=== PATIENT | female | born 1995 | race African-American/Black ===

== ENCOUNTER 2017-06-30 03:42 | Emergency (ER) | payer SELFPAY ==
[~2017-06-30] VITALS: Ht 167.6 cm; Wt 85.0 kg
[~2017-06-30 03:42] MED LIST: BENT20TA PO; CHLO.12%30 SSP; CIPR-9 PO; DICL75TA PO; LOMO2.5T PO; PENI500T PO; ZANTTAB9 PO; ZOFR4TAB3 SL
[2017-06-30 03:45] VITALS: BP 133/73; PULSE 98; RESP 16; TEMP 98.4; O2SAT 99
[2017-06-30] MEDS ORDERED: KETOROLAC TROMETHAMINE 60 MG/2 ML (IM) VIAL IM ONE (04:00)
--- NOTE | 2017-06-30 04:02 | PD ---
HPI Chief Complaint: Injury Time Seen by Provider: 03:50 Travel History International Travel<30 days: No Contact w/Intl Traveler<30days: No Traveled to known affect area: No History of Present Illness HPI 21-year-old female presents for evaluation of left knee pain. At 5 PM yesterday the patient tripped and fell, hitting her left knee against the ground. She now has left knee pain which is aching, constant, worse with movement. Denies any other injuries and she has no other complaints at this time. PFSH Past Medical History Autoimmune Disease: No Cardiovascular Problems: No Diminished Hearing: No Gastrointestinal Disorders: No Genitourinary: No Musculoskeletal: No Neurologic: No Psychiatric: No Reproductive: No Respiratory: No Immunizations Current: Yes : 1 Para: 1 Miscarriage: 0 : 0 Past Surgical History Section: Yes Oral Surgery: Yes (TOOTH PULLED ON 02/16) Other Surgery: No Social History Alcohol Use: No Tobacco Use: No Substance Use: No Allergies-Medications (Allergen,Severity, Reaction): Coded Allergies: No Known Allergies (Verified , 06/30/17) Reported Meds & Prescriptions Reported Meds & Active Scripts Active Lomotil (Diphenoxylate-Atropine) 2.5-0.025 Mg Tab 1 Tab PO Q6H PRN Bentyl (Dicyclomine HCl) 20 Mg Tab 20 Mg PO TID Zofran Odt (Ondansetron Odt) 4 Mg Tab 4 Mg SL Q6HR PRN Zantac 75 (Ranitidine HCl) 75 Mg Tab 75 Mg PO BID Take 30 to 60 minutes before eating food or drinking beverages that cause heartburn. Cipro (Ciprofloxacin HCl) 500 Mg Tab 500 Mg PO BID [address] (Diclofenac Sodium) 75 Mg Tabdr 75 Mg PO Q8HR PRN Peridex Oral R0.12 % 0.12 % Debbi 15 Ml SSP BID 7 Days Pen Vk (Penicillin V Potassium) 500 Mg Tab 500 Mg PO Q6 10 Days Review of Systems Except as stated in HPI: all other systems reviewed are Neg Physical Exam Narrative GENERAL: Well-developed well-nourished female in no acute distress SKIN: Warm and dry. No Bruising or soft tissue swelling HEAD: Atraumatic. Normocephalic. EYES: Pupils equal and round. No scleral icterus. No injection or drainage. ENT: No nasal bleeding or discharge. Mucous membranes pink and moist. NECK: Trachea midline. No JVD. CARDIOVASCULAR: Regular rate and rhythm. No murmur appreciated. RESPIRATORY: No accessory muscle use. Clear to auscultation. Breath sounds equal bilaterally. MUSCULOSKELETAL: Tender to palpation anterior left knee with no obvious deformity. No joint effusion. Pain with flexion and extension. No laxity on stress examination. NEUROLOGICAL: Awake and alert. No obvious cranial nerve deficits. Motor grossly within normal limits. Normal speech. Data Data Last Documented VS Vital Signs Date Time Temp Pulse Resp B/P Pulse Ox O2 Delivery O2 Flow Rate FiO2 06/30/17 03:45 98.4 98 16 133/73 99 Room Air Orders Ketorolac Inj (Toradol Inj) (06/30/17 04:00) Knee, Complete (4vws) (06/30/17 ) Crutches (06/30/17 05:52) [facility] Medical Decision Making Medical Screen Exam Complete: Yes Emergency Medical Condition: Yes Medical Record Reviewed: Yes Differential Diagnosis Confusion, patellar fracture, tibial plateau fracture, ligamentous disruption, meniscal disruption Narrative Course X-ray imaging reveals no acute abnormalities. Toradol injection was administered. The patient is stable for discharge, outpatient follow-up. Diagnosis Primary Impression: Strain of left knee Qualified Code: S86.912A - Strain of left knee, initial encounter Additional Instructions: Crutches as needed. Tylenol or Motrin for discomfort. Follow up next week with primary care physician for recheck. Med/Other Pt SpecificInfo: Orthopedic Instructions Disposition: DISCHARGE HOME Condition: Stable Ketan Hickman Jun 30, 2017 04:02
--- NOTE | 2017-06-30 05:51 | RADRPT ---
EXAM DATE/TIME: 06/30/2017 04:34 [place] COMPARISON: No previous studies available for comparison. INDICATIONS : Left patella pain post fall. MEDICAL HISTORY : None. SURGICAL HISTORY : None. ENCOUNTER: Initial ACUITY: 1 day PAIN SCORE: 8/10 LOCATION: Left knee FINDINGS: Four view examination of the left knee demonstrates no evidence of fracture or dislocation. Bony min eralization is normal. The articular surfaces are intact. The suprapatellar soft tissues have a nor mal configuration. CONCLUSION: Negative exam. No fracture or effusion. Omkar Cleveland MD on June 30, 2017 at 5:49 Board Certified Radiologist. This report was verified electronically.
== END 2017-06-30 06:09 | disposition home or self-care (01) ==
LOC: NEPD 03:42
DX: S86.912A Strain of unspecified muscle(s) and tendon(s) at lower leg level, left leg, initial encounter (principal); W01.0XXA Fall on same level from slipping, tripping and stumbling without subsequent striking against object, initial encounter
CPT/HCPCS: 73564; 96372; 99284; E0113; J1885

== ENCOUNTER 2018-04-05 18:24 | Inpatient (IN) | payer MEDICAID ==
[~2018-04-05] VITALS: Ht 162.6 cm; Wt 116.1 kg
[2018-04-05 18:37] VITALS: BP 161/66; PULSE 135; RESP 18; TEMP 100.3; O2SAT 98
[2018-04-05] MEDS ORDERED: IBUPROFEN 800 MG TAB PO ONE (20:00)
[2018-04-05] MEDS ORDERED: SODIUM CHLORIDE 0.9% FLUSH 10 ML FLUSH IVF PRN (20:00)
[2018-04-05] MEDS ORDERED: SODIUM CHLOR 0.9% 1000 ML INJ 1,000 ML IV ONE ×2 (20:15→21:00)
[2018-04-05] MEDS ORDERED: DEXAMETHASONE SOD PHOS 4 MG/ML VIAL IV PUSH ONE (20:15)
--- NOTE | 2018-04-05 20:21 | PD ---
HPI Chief Complaint: Fever Time Seen by Provider: 19:59 Travel History International Travel<30 days: No Contact w/Intl Traveler<30days: No Traveled to known affect area: No History of Present Illness HPI Patient is a 22-year-old female presenting to the emergency department for evaluation of a sore throat, headache, pleuritic pain. Patient states her symptoms started yesterday. She reports subjective fevers and chills. She reports that it hurts to swallow. She denies any dysphasia, nausea, vomiting, abdominal pain. She states it hurts to take a deep breath. Symptom onset was gradual, symptoms are moderate in nature. She reports the pain in her throat is a 7 out of 10. She last took Tylenol last night. She reports the pain is sore. She states she feels dizzy at times. PFSH Past Medical History Medical History: Denies Significant Hx Immunizations Current: Yes ?: Not LMP: 03/14/18 : 1 Para: 1 Miscarriage: 0 : 0 Past Surgical History Section: Yes Oral Surgery: Yes (TOOTH PULLED ON 02/16) Other Surgery: No Social History Alcohol Use: No Tobacco Use: No Substance Use: No Allergies-Medications (Allergen,Severity, Reaction): Coded Allergies: No Known Allergies (Verified , 06/30/17) Reported Meds & Prescriptions Reported Meds & Active Scripts Active Lomotil (Diphenoxylate-Atropine) 2.5-0.025 Mg Tab 1 Tab PO Q6H PRN Bentyl (Dicyclomine HCl) 20 Mg Tab 20 Mg PO TID Zofran Odt (Ondansetron Odt) 4 Mg Tab 4 Mg SL Q6HR PRN Zantac 75 (Ranitidine HCl) 75 Mg Tab 75 Mg PO BID Take 30 to 60 minutes before eating food or drinking beverages that cause heartburn. Cipro (Ciprofloxacin HCl) 500 Mg Tab 500 Mg PO BID [address] (Diclofenac Sodium) 75 Mg Tabdr 75 Mg PO Q8HR PRN Peridex Oral R0.12 % 0.12 % Debbi 15 Ml SSP BID 7 Days Pen Vk (Penicillin V Potassium) 500 Mg Tab 500 Mg PO Q6 10 Days Review of Systems Except as stated in HPI: all other systems reviewed are Neg General / Constitutional: Positive: Fever, Chills HENT: Positive: Headaches, Sore Throat Cardiovascular: No: Chest Pain or Discomfort Respiratory: Positive: Pleuritic Pain Gastrointestinal: No: Nausea, Vomiting Musculoskeletal: Positive: Myalgias Neurologic: Positive: Dizziness Physical Exam Narrative GENERAL: Overweight, well-developed, alert -[place] female. Appears uncomfortable, no acute distress. SKIN: Warm and dry. HEAD: Atraumatic. Normocephalic. EYES: Pupils equal and round. No scleral icterus. No injection or drainage. ENT: No nasal bleeding or discharge. Mucous membranes pink and moist. 1+ tonsillar hypertrophy, they are erythematous with exudates noted. Uvula is midline, airway is patent. NECK: Trachea midline. No JVD. CARDIOVASCULAR: Regular rate and rhythm. RESPIRATORY: No accessory muscle use. Clear to auscultation. Breath sounds equal bilaterally. GASTROINTESTINAL: Abdomen soft, non-tender, nondistended. Hepatic and splenic margins not palpable. MUSCULOSKELETAL: Extremities without clubbing, cyanosis, or edema. No obvious deformities. NEUROLOGICAL: Awake and alert. No obvious cranial nerve deficits. Motor grossly within normal limits. Five out of 5 muscle strength in the arms and legs. Normal speech. PSYCHIATRIC: Appropriate mood and affect; insight and judgment normal. Data Data Last Documented VS Vital Signs Date Time Temp Pulse Resp B/P (MAP) Pulse Ox O2 Delivery O2 Flow Rate FiO2 04/05/18 21:06 100.3 116 20 131/70 (90) 99 Orders Orders Complete Blood Count With Diff (04/05/18 20:00) Comprehensive Metabolic Panel (04/05/18 20:00) Influenzae A/B Antigen (04/05/18 20:00) Chest, Pa & Lat (04/05/18 20:00) Oximetry (04/05/18 20:00) Ibuprofen (Motrin) (04/05/18 20:00) Sodium Chloride 0.9% Flush (Ns Flush) (04/05/18 20:00) Ed Urine Pregnancytest Poc (04/05/18 20:00) Urinalysis - C+S If Indicated (04/05/18 20:00) Group A Rapid Strep Screen (04/05/18 20:05) Dexamethasone Inj (Decadron Inj) (04/05/18 20:15) Iv Access Insert/Monitor (04/05/18 20:05) Sodium Chlor 0.9% 1000 Ml Inj (Ns 1000 M (5/26/18 20:15) D-Dimer (04/05/18 20:22) Ceftriaxone Inj (Rocephin Inj) (04/05/18 21:00) Azithromycin Inj (Zithromax Inj) (04/05/18 21:00) Sodium Chlor 0.9% 1000 Ml Inj (Ns 1000 M (04/05/18 21:00) Strep Culture (Group A) (04/05/18 20:35) Albuterol-Ipratropium Neb (Duoneb Neb) (04/05/18 22:15) Labs Laboratory Tests Test 04/05/18 20:35 04/05/18 20:40 04/05/18 21:48 White Blood Count 19.8 TH/MM3 Red Blood Count 4.59 MIL/MM3 Hemoglobin 11.2 GM/DL Hematocrit 35.8 % Mean Corpuscular Volume 77.9 FL Mean Corpuscular Hemoglobin 24.4 PG Mean Corpuscular Hemoglobin Concent 31.4 % Red Cell Distribution Width 15.2 % Platelet Count 385 TH/MM3 Mean Platelet Volume 8.5 FL Neutrophils (%) (Auto) 78.8 % Lymphocytes (%) (Auto) 13.5 % Monocytes (%) (Auto) 6.9 % Eosinophils (%) (Auto) 0.3 % Basophils (%) (Auto) 0.5 % Neutrophils # (Auto) 15.6 TH/MM3 Lymphocytes # (Auto) 2.7 TH/MM3 Monocytes # (Auto) 1.4 TH/MM3 Eosinophils # (Auto) 0.1 TH/MM3 Basophils # (Auto) 0.1 TH/MM3 CBC Comment DIFF FINAL Differential Comment Blood Urea Nitrogen 12 MG/DL Creatinine 0.90 MG/DL Random Glucose 87 MG/DL Total Protein 8.0 GM/DL Albumin 3.3 GM/DL Calcium Level 8.8 MG/DL Alkaline Phosphatase 102 U/L Aspartate Amino Transf (AST/SGOT) 18 U/L Alanine Aminotransferase (ALT/SGPT) 24 U/L Total Bilirubin 0.6 MG/DL Sodium Level 138 MEQ/L Potassium Level 3.4 MEQ/L Chloride Level 103 MEQ/L Carbon Dioxide Level 25.7 MEQ/L Anion Gap 9 MEQ/L Estimat Glomerular Filtration Rate 94 ML/MIN D-Dimer Quantitative (PE/DVT) 0.25 MG/L FEU [facility] Medical Decision Making Medical Screen Exam Complete: Yes Emergency Medical Condition: Yes Interpretation(s) Vital Signs Date Time Temp Pulse Resp B/P (MAP) Pulse Ox O2 Delivery O2 Flow Rate FiO2 04/05/18 21:06 100.3 116 20 131/70 (90) 99 04/05/18 18:37 100.3 135 18 161/66 (97) 98 Last Impressions Chest X-Ray 04/05/181999 Signed Impressions: CONCLUSION: Bilateral airspace disease most characteristic of pneumonitis. Laboratory Tests Test 04/05/18 20:35 04/05/18 20:40 04/05/18 21:48 White Blood Count 19.8 TH/MM3 Red Blood Count 4.59 MIL/MM3 Hemoglobin 11.2 GM/DL Hematocrit 35.8 % Mean Corpuscular Volume 77.9 FL Mean Corpuscular Hemoglobin 24.4 PG Mean Corpuscular Hemoglobin Concent 31.4 % Red Cell Distribution Width 15.2 % Platelet Count 385 TH/MM3 Mean Platelet Volume 8.5 FL Neutrophils (%) (Auto) 78.8 % Lymphocytes (%) (Auto) 13.5 % Monocytes (%) (Auto) 6.9 % Eosinophils (%) (Auto) 0.3 % Basophils (%) (Auto) 0.5 % Neutrophils # (Auto) 15.6 TH/MM3 Lymphocytes # (Auto) 2.7 TH/MM3 Monocytes # (Auto) 1.4 TH/MM3 Eosinophils # (Auto) 0.1 TH/MM3 Basophils # (Auto) 0.1 TH/MM3 CBC Comment DIFF FINAL Differential Comment Blood Urea Nitrogen 12 MG/DL Creatinine 0.90 MG/DL Random Glucose 87 MG/DL Total Protein 8.0 GM/DL Albumin 3.3 GM/DL Calcium Level 8.8 MG/DL Alkaline Phosphatase 102 U/L Aspartate Amino Transf (AST/SGOT) 18 U/L Alanine Aminotransferase (ALT/SGPT) 24 U/L Total Bilirubin 0.6 MG/DL Sodium Level 138 MEQ/L Potassium Level 3.4 MEQ/L Chloride Level 103 MEQ/L Carbon Dioxide Level 25.7 MEQ/L Anion Gap 9 MEQ/L Estimat Glomerular Filtration Rate 94 ML/MIN D-Dimer Quantitative (PE/DVT) 0.25 MG/L FEU Differential Diagnosis Strep pharyngitis versus viral syndrome versus pneumonia versus influenza versus other Narrative Course Patient is a 22-year-old female presenting for evaluation of cold and flulike symptoms that started yesterday. Patient is mildly febrile on arrival, ibuprofen ordered. Patient will also be given dexamethasone, influenza and strep are pending. Patient will be given IV fluids. CBC shows a white count of 19.8 with left shift. Chest x-ray which is read by the radiologist shows bilateral pneumonitis. Chemistry with potassium of 3.4 otherwise unremarkable. A d-dimer was obtained due to patient's complaint of painful respirations and this was negative. Patient was started on Rocephin and azithromycin. Strep and influenza are negative. Patient was also seen and evaluated by my attending physician. Patient continues to be tachycardic and tachypneic. DuoNeb 1 was ordered. Patient will be admitted for IV antibiotics at this time. Diagnosis Primary Impression: Pneumonia Qualified Codes: J18.9 - Pneumonia, unspecified organism Additional Impression: Hypokalemia Admitting Information Admitting Physician Requests: Admit Additional Instructions: Follow-up with orthopedic surgeon in 1 week Rest, ice, elevate extremity Take medications as needed and as directed for pain Return to emergency department for any new or worsening symptoms Disposition: [address] [facility]NF[employer] Condition: Stable Romi Loredo Lois STEIN April 05, 2018 20:21
--- NOTE | 2018-04-05 20:35 | RADRPT ---
EXAM DATE: 04/05/2018 8:30 PM EDT AGE/SEX: 22 years / Female INDICATIONS: Chest pain with shortness of breath. CLINICAL DATA: This is the patient's initial encounter. Patient reports that signs and symptoms have been present for 2 days and indicates a pain score of 8/10. MEDICAL/SURGICAL HISTORY: None. section. COMPARISON: No prior [place] exams available for comparison. FINDINGS: Subsegmental and segmental airspace disease is identified in both lungs. Consolidating infiltrate is developing in the lingula. Heart is normal in size. Osseous structures are intact. CONCLUSION: Bilateral airspace disease most characteristic of pneumonitis. Electronically signed by: Merlin Griffin MD 04/05/2018 8:34 PM EDT
[2018-04-05 20:56] LABS: AUTOMATED NEUTROPHIL # 15.6 TH/MM3 (1.8-7.7); BASOPHIL # 0.1 TH/MM3 (0-0.2); BASOPHIL % 0.5 % (0.0-2.0); EOSINOPHIL # 0.1 TH/MM3 (0-0.4); EOSINOPHIL % 0.3 % (0.0-4.0); HEMATOCRIT 35.8 % (35.0-46.0); HEMOGLOBIN 11.2 GM/DL (11.6-15.3); LYMPH % 13.5 % (9.0-44.0); LYMPHOCYTE # 2.7 TH/MM3 (1.0-4.8); MEAN CELL VOLUME 77.9 FL (80.0-100.0); MEAN CORPUSCULAR HEMOGLOBIN 24.4 PG (27.0-34.0); MEAN CORPUSCULAR HGB CONC 31.4 % (32.0-36.0); MEAN PLATELET VOLUME 8.5 FL (7.0-11.0); MONO % 6.9 % (0.0-8.0); MONOCYTE # 1.4 TH/MM3 (0-0.9); NEUT % 78.8 % (16.0-70.0); PLATELET COUNT 385 TH/MM3 (150-450); RED BLOOD COUNT 4.59 MIL/MM3 (4.00-5.30); RED CELL DISTRIBUTION WIDTH 15.2 % (11.6-17.2); WHITE BLOOD COUNT 19.8 TH/MM3 (4.0-11.0)
[2018-04-05] MEDS ORDERED: AZITHROMYCIN INJ 500 MG in SODIUM CHLOR 0.9% 250 ML INJ 250 ML IV ONE (21:00)
[2018-04-05] MEDS ORDERED: cefTRIAXone INJ 2,000 MG in SODIUM CHLORIDE 0.9% INJ 100 ML IV ONE (21:00)
[2018-04-05 21:06] VITALS: BP 131/70; PULSE 116; RESP 20; TEMP 100.3; O2SAT 99
[2018-04-05 21:13] LABS: ALBUMIN 3.3 GM/DL (3.4-5.0); ALT (GPT) 24 U/L (10-53); AST (GOT) 18 U/L (15-37); BICARBONATE 25.7 MEQ/L (21.0-32.0); BLOOD UREA NITROGEN 12 MG/DL (7-18); CALCIUM 8.8 MG/DL (8.5-10.1); CHLORIDE 103 MEQ/L (98-107); GLOMERULAR FILTRATION RATE 94 ML/MIN (>89); GLUCOSE,RANDOM 87 MG/DL (74-106); SODIUM (NA) 138 MEQ/L (136-145)
[2018-04-05 21:16] LABS: ALKALINE PHOSPHATASE 102 U/L (45-117); TOTAL BILIRUBIN ADULT 0.6 MG/DL (0.2-1.0)
[2018-04-05] MEDS ORDERED: RESP: ALBUTEROL 2.5 MG/IPRATROPIUM 0.5 MG NEB (SCH) NEB ONE (22:15)
[2018-04-05] MEDS ORDERED: IBUP1TAB7 PO (22:16)
--- NOTE | 2018-04-05 22:16 | PD ---
Data Data Last Documented VS Vital Signs Date Time Temp Pulse Resp B/P (MAP) Pulse Ox O2 Delivery O2 Flow Rate FiO2 04/05/18 21:06 100.3 116 20 131/70 (90) 99 Orders Orders Complete Blood Count With Diff (04/05/18 20:00) Comprehensive Metabolic Panel (04/05/18 20:00) Influenzae A/B Antigen (04/05/18 20:00) Chest, Pa & Lat (04/05/18 20:00) Oximetry (04/05/18 20:00) Ibuprofen (Motrin) (04/05/18 20:00) Sodium Chloride 0.9% Flush (Ns Flush) (04/05/18 20:00) Ed Urine Pregnancytest Poc (04/05/18 20:00) Urinalysis - C+S If Indicated (04/05/18 20:00) Group A Rapid Strep Screen (04/05/18 20:05) Dexamethasone Inj (Decadron Inj) (04/05/18 20:15) Iv Access Insert/Monitor (04/05/18 20:05) Sodium Chlor 0.9% 1000 Ml Inj (Ns 1000 M (04/05/18 20:15) D-Dimer (04/05/18 20:22) Ceftriaxone Inj (Rocephin Inj) (04/05/18 21:00) Azithromycin Inj (Zithromax Inj) (04/05/18 21:00) Sodium Chlor 0.9% 1000 Ml Inj (Ns 1000 M (04/05/18 21:00) Strep Culture (Group A) (04/05/18 20:35) Albuterol-Ipratropium Neb (Duoneb Neb) (04/05/18 22:15) Labs Laboratory Tests Test 04/05/18 20:35 04/05/18 20:40 04/05/18 21:48 White Blood Count 19.8 TH/MM3 Red Blood Count 4.59 MIL/MM3 Hemoglobin 11.2 GM/DL Hematocrit 35.8 % Mean Corpuscular Volume 77.9 FL Mean Corpuscular Hemoglobin 24.4 PG Mean Corpuscular Hemoglobin Concent 31.4 % Red Cell Distribution Width 15.2 % Platelet Count 385 TH/MM3 Mean Platelet Volume 8.5 FL Neutrophils (%) (Auto) 78.8 % Lymphocytes (%) (Auto) 13.5 % Monocytes (%) (Auto) 6.9 % Eosinophils (%) (Auto) 0.3 % Basophils (%) (Auto) 0.5 % Neutrophils # (Auto) 15.6 TH/MM3 Lymphocytes # (Auto) 2.7 TH/MM3 Monocytes # (Auto) 1.4 TH/MM3 Eosinophils # (Auto) 0.1 TH/MM3 Basophils # (Auto) 0.1 TH/MM3 CBC Comment DIFF FINAL Differential Comment Blood Urea Nitrogen 12 MG/DL Creatinine 0.90 MG/DL Random Glucose 87 MG/DL Total Protein 8.0 GM/DL Albumin 3.3 GM/DL Calcium Level 8.8 MG/DL Alkaline Phosphatase 102 U/L Aspartate Amino Transf (AST/SGOT) 18 U/L Alanine Aminotransferase (ALT/SGPT) 24 U/L Total Bilirubin 0.6 MG/DL Sodium Level 138 MEQ/L Potassium Level 3.4 MEQ/L Chloride Level 103 MEQ/L Carbon Dioxide Level 25.7 MEQ/L Anion Gap 9 MEQ/L Estimat Glomerular Filtration Rate 94 ML/MIN D-Dimer Quantitative (PE/DVT) 0.25 MG/L FEU MDM Supervised Visit with EVIE: Yes Narrative Course I, Dr. Thornton, have reviewed the advance practice practitioner's documentation and am in agreement, met with the patient face to face, made the diagnosis, and the medical decision making was done by me. *My assessment and Findings: This patient presented with tachypnea and tachycardia and dyspnea and fever. Chest x-ray shows a community-acquired pneumonia. She received multiple liters of IV fluid and IV antibiotics. Despite all the therapy here she is still tachycardic and tachypneic and dyspneic and not stable for outpatient follow-up at this time. She will be hospitalized for IV antibiotics and supportive care Luisito Thornton MD April 05, 2018 22:16
[2018-04-05 22:20] LABS: BACTERIA, URINE RARE /hpf; BILIRUBIN, URINE NEG (NEG); BLOOD, URINE NEG (NEG); GLUCOSE,URINE NEG (NEG); KETONE, URINE NEG (NEG); NITRITE,URINE NEG (NEG); PH, URINE 7.5 (5.0-8.5); SQUAMOUS EPITHELIAL CELL URINE 3 /hpf (0-5); URINE COLOR LIGHT-YELLOW (YELLW/STRAW); URINE LEUKOCYTE ESTERASE TRACE (NEG)
--- NOTE | 2018-04-05 22:20 | HHI.HP ---
[facility] Primary Care Physician Lennox Stanford MD Admission Diagnosis PNA Diagnoses: Travel History International Travel<30 Days: No Contact w/Intl Traveler <30 Da: No Traveled to Known Affected Are: No Past Family Social History Allergies: Coded Allergies: No Known Allergies (Verified Allergy, Unknown, 04/05/18) Physical Exam Vital Signs Vital Signs Date Time Temp Pulse Resp B/P (MAP) Pulse Ox O2 Delivery O2 Flow Rate FiO2 04/05/18 21:06 100.3 116 20 131/70 (90) 99 04/05/18 18:37 100.3 135 18 161/66 (97) 98 Physical Exam GENERAL: This is a well-nourished, well-developed patient, in no apparent distress. SKIN: No rashes, ecchymoses or lesions. Cool and dry. HEAD: Atraumatic. Normocephalic. No temporal or scalp tenderness. EYES: Pupils equal round and reactive. Extraocular motions intact. No scleral icterus. No injection or drainage. ENT: Nose without bleeding, purulent drainage or septal hematoma. Throat without erythema, tonsillar hypertrophy or exudate. Uvula midline. Airway patent. NECK: Trachea midline. No JVD or lymphadenopathy. Supple, nontender, no meningeal signs. CARDIOVASCULAR: Regular rate and rhythm without murmurs, gallops, or rubs. RESPIRATORY: Clear to auscultation. Breath sounds equal bilaterally. No wheezes , rales, or rhonchi. GASTROINTESTINAL: Abdomen soft, non-tender, nondistended. No hepato-splenomegaly , or palpable masses. No guarding. MUSCULOSKELETAL: Extremities without clubbing, cyanosis, or edema. No joint tenderness, effusion, or edema noted. No calf tenderness. Negative Homans sign bilaterally. NEUROLOGICAL: Awake and alert. Cranial nerves II through XII intact. Motor and sensory grossly within normal limits. Five out of 5 muscle strength in all muscle groups. Normal speech. Laboratory Laboratory Tests Test 04/05/18 20:35 04/05/18 20:40 04/05/18 21:48 White Blood Count 19.8 Red Blood Count 4.59 Hemoglobin 11.2 Hematocrit 35.8 Mean Corpuscular Volume 77.9 Mean Corpuscular Hemoglobin 24.4 Mean Corpuscular Hemoglobin Concent 31.4 Red Cell Distribution Width 15.2 Platelet Count 385 Mean Platelet Volume 8.5 Neutrophils (%) (Auto) 78.8 Lymphocytes (%) (Auto) 13.5 Monocytes (%) (Auto) 6.9 Eosinophils (%) (Auto) 0.3 Basophils (%) (Auto) 0.5 Neutrophils # (Auto) 15.6 Lymphocytes # (Auto) 2.7 Monocytes # (Auto) 1.4 Eosinophils # (Auto) 0.1 Basophils # (Auto) 0.1 CBC Comment DIFF FINAL Differential Comment Blood Urea Nitrogen 12 Creatinine 0.90 Random Glucose 87 Total Protein 8.0 Albumin 3.3 Calcium Level 8.8 Alkaline Phosphatase 102 Aspartate Amino Transf (AST/SGOT) 18 Alanine Aminotransferase (ALT/SGPT) 24 Total Bilirubin 0.6 Sodium Level 138 Potassium Level 3.4 Chloride Level 103 Carbon Dioxide Level 25.7 Anion Gap 9 Estimat Glomerular Filtration Rate 94 D-Dimer Quantitative (PE/DVT) 0.25 Date/Time Source Procedure Growth Status 04/05/18 20:35 Throat Group A Streptococcus Screen Pending Received Result Diagram: 04/05/18203404/05/182034 Caprini VTE Risk Assessment Caprini Risk Assessment Model Point Value = 1 Point Value = 2 Point Value = 3 Point Value = 5 Age 41-60 Minor surgery BMI > 25 kg/m2 Swollen legs Varicose veins or History of unexplained or recurrent spontaneous Oral contraceptives or hormone replacement Sepsis (< 1 month) Serious lung disease, including pneumonia (< 1 month) Abnormal pulmonary function Acute myocardial infarction Congestive heart failure (< 1 month) History of inflammatory bowel disease Medical patient at bed rest Age 61-74 Arthroscopic surgery Major open surgery (> 45 min) Laparoscopic surgery (> 45 min) Malignancy Confined to bed (> 72 hours) Immobilizing plaster cast Central venous access Age >= 75 History of VTE Family history of VTE Factor V Leiden Prothrombin [id number] Lupus anticoagulant Anticardiolipin antibodies Elevated serum homocysteine Heparin-induced thrombocytopenia Other congenital or acquired thrombophilia Stroke (< 1 month) Elective arthroplasty Hip, pelvis, or leg fracture Acute spinal cord injury (< 1 month) Prophylaxis Regimen Total Risk Factor Score Risk Level Prophylaxis Regimen 0-1 Low Early ambulation 2 Moderate Order ONE of the following: *Sequential Compression Device (SCD) *Heparin 5000 units SQ BID 3-4 Higher Order ONE of the following medications: *Heparin 5000 units SQ TID *Enoxaparin/Lovenox 40 mg SQ daily (WT < 150 kg, CrCl > 30 mL/min) *Enoxaparin/Lovenox 30 mg SQ daily (WT < 150 kg, CrCl > 10-29 mL/min) *Enoxaparin/Lovenox 30 mg SQ BID (WT < 150 kg, CrCl > 30 mL/min) AND/OR *Sequential Compression Device (SCD) 5 or more Highest Order ONE of the following medications: *Heparin 5000 units SQ TID (Preferred with Epidurals) *Enoxaparin/Lovenox 40 mg SQ daily (WT < 150 kg, CrCl > 30 mL/min) *Enoxaparin/Lovenox 30 mg SQ daily (WT < 150 kg, CrCl > 10-29 mL/min) *Enoxaparin/Lovenox 30 mg SQ BID (WT < 150 kg, CrCl > 30 mL/min) AND *Sequential Compression Device (SCD) Physician Certification Order for Inpatient Services The services are ordered in accordance with Medicare regulations or non- Medicare payer requirements, as applicable. In the case of services not specified as inpatient-only, they are appropriately provided as inpatient services in accordance with the 2-midnight benchmark. days is the estimated time the patient will need to remain in the hospital, assuming treatment plan goals are met and no additional complications. Karen Guzmán MD April 05, 2018 22:20
[2018-04-05] MEDS ORDERED: ACETAMINOPHEN/HYDROcodone 325 MG/5 MG TAB PO PRN (22:30)
[2018-04-05] MEDS ORDERED: LACTULOSE SYRUP 20 GM/30 ML CUP PO PRN (22:30)
[2018-04-05] MEDS ORDERED: SENNOSIDES 8.6 MG TAB PO PRN (22:30)
[2018-04-05] MEDS ORDERED: ACETAMINOPHEN 325 MG TAB PO PRN (22:30)
[2018-04-05] MEDS ORDERED: SODIUM CHLORIDE 0.9% FLUSH 10 ML FLUSH IV FLUSH PRN (22:30)
[2018-04-05] MEDS ORDERED: BISACODYL 10 MG SUPP RECTAL PRN (22:30)
[2018-04-05] MEDS: SODIUM CHLOR 0.9% 1000 ML INJ 1,000 ML IV SCH (23:31)
--- NOTE | 2018-04-05 23:35 | HHI.HP ---
[facility] Service [facility] Primary Care Physician Lennox Stanford MD Admission Diagnosis PNA Diagnoses: Chief Complaint: Shortness of breath, sore throat Travel History International Travel<30 Days: No Contact w/Intl Traveler <30 Da: No Traveled to Known Affected Are: No History of Present Illness 22-year-old female with no medical history presented to the ED with complaints of shortness of breath, and sore throat. Patient states the symptoms have been going on for the last 2 days she states it is hard for her to take a deep breath and hard to swallow. She states she has had a fever at home but unknown temperature and chills. She denies any chest pain, headaches, nausea, vomiting. She also complains of generalized body pain 7/10 that was relieved by Tylenol last night. Past Family Social History Past Medical History Patient denies any medical history Past Surgical History Reported Medications Reported Meds & Active Scripts Active Lomotil (Diphenoxylate-Atropine) 2.5-0.025 Mg Tab 1 Tab PO Q6H PRN Bentyl (Dicyclomine HCl) 20 Mg Tab 20 Mg PO TID Zofran Odt (Ondansetron Odt) 4 Mg Tab 4 Mg SL Q6HR PRN Zantac 75 (Ranitidine HCl) 75 Mg Tab 75 Mg PO BID Take 30 to 60 minutes before eating food or drinking beverages that cause heartburn. Cipro (Ciprofloxacin HCl) 500 Mg Tab 500 Mg PO BID [address] (Diclofenac Sodium) 75 Mg Tabdr 75 Mg PO Q8HR PRN Peridex Oral Rinse (Chlorhexidine Gluconate) 0.12 % Debbi 15 Ml SSP BID 7 Days Pen Vk (Penicillin V Potassium) 500 Mg Tab 500 Mg PO Q6 10 Days Allergies: Coded Allergies: No Known Allergies (Verified Allergy, Unknown, 04/05/18) Active Ordered Medications Current Medications Medications (Trade) Dose Ordered Sig/Janet Route Start Time Stop Time Status Last Admin (SoluMEDROL INJ) 40 mg Q6HR IV PUSH 04/06/18 00:00 04/06/18 00:16 (Duoneb Neb) 1 ampule Q4HR NEB PRN NEB 04/05/18 22:30 (Symbicort 160-4.5 Mcg Inh) 2 puff Q12HR INH 04/06/18 09:00 (Mucinex Er) 600 mg BID PO 04/06/18 09:00 Ceftriaxone Sodium 1000 mg/ Sodium Chloride 100 ml @ 200 mls/hr Q24H IV 04/06/18 20:00 Azithromycin 500 mg/Sodium Chloride 250 ml @ 250 mls/hr Q24H IV 04/06/18 21:00 Sodium Chloride 1,000 ml @ 100 mls/hr Q10H IV 04/05/18 22:17 04/05/18 23:31 (NS Flush) 2 ml UNSCH PRN IV FLUSH 04/05/18 22:30 (NS Flush) 2 ml BID IV FLUSH 04/06/18 09:00 (Reglan Inj) 5 mg Q6H PRN IV PUSH 04/05/18 22:30 (Tylenol) 650 mg Q6H PRN PO 04/05/18 22:30 ([place] 5-325 Mg) 1 tab Q4H PRN PO 04/05/18 22:30 ([place] 10-325 Mg) 1 tab Q4H PRN PO 04/05/18 22:30 (Evy-Colace) 1 tab BID PO 04/06/18 09:00 (Milk Of Magnesia Liq) 30 ml Q12H PRN PO 04/05/18 22:30 (Senokot) 17.2 mg Q12H PRN PO 04/05/18 22:30 (Dulcolax Supp) 10 mg DAILY PRN RECTAL 04/05/18 22:30 (Lactulose Liq) 30 ml DAILY PRN PO 04/05/18 22:30 Family History Mom: Hypertension Dad: Diabetes Social History Patient denies any alcohol, tobacco or illicit drug use Physical Exam Vital Signs Vital Signs Date Time Temp Pulse Resp B/P (MAP) Pulse Ox O2 Delivery O2 Flow Rate FiO2 04/05/18 21:06 100.3 116 20 131/70 (90) 99 04/05/18 18:37 100.3 135 18 161/66 (97) 98 Physical Exam GENERAL: This is a well-nourished, well-developed patient, in no apparent distress. SKIN: No rashes, ecchymoses or lesions. Cool and dry. HEAD: Atraumatic. Normocephalic. No temporal or scalp tenderness. EYES: Pupils equal round and reactive. Extraocular motions intact. No scleral icterus. No injection or drainage. ENT: Nose without bleeding, purulent drainage or septal hematoma. Throat with erythema, no tonsillar hypertrophy or exudate. CARDIOVASCULAR: Regular rate and rhythm without murmurs, gallops, or rubs. RESPIRATORY: Clear to auscultation. Breath sounds equal bilaterally. No wheezes , rales, or rhonchi. GASTROINTESTINAL: Abdomen soft, non-tender, nondistended. No hepato-splenomegaly , or palpable masses. No guarding. MUSCULOSKELETAL: Extremities without clubbing, cyanosis, or edema. No joint tenderness, effusion, or edema noted. No calf tenderness. NEUROLOGICAL: Awake and alert. Normal speech. Laboratory Laboratory Tests Test 04/05/18 20:35 04/05/18 20:40 04/05/18 21:48 White Blood Count 19.8 Red Blood Count 4.59 Hemoglobin 11.2 Hematocrit 35.8 Mean Corpuscular Volume 77.9 Mean Corpuscular Hemoglobin 24.4 Mean Corpuscular Hemoglobin Concent 31.4 Red Cell Distribution Width 15.2 Platelet Count 385 Mean Platelet Volume 8.5 Neutrophils (%) (Auto) 78.8 Lymphocytes (%) (Auto) 13.5 Monocytes (%) (Auto) 6.9 Eosinophils (%) (Auto) 0.3 Basophils (%) (Auto) 0.5 Neutrophils # (Auto) 15.6 Lymphocytes # (Auto) 2.7 Monocytes # (Auto) 1.4 Eosinophils # (Auto) 0.1 Basophils # (Auto) 0.1 CBC Comment DIFF FINAL Differential Comment Blood Urea Nitrogen 12 Creatinine 0.90 Random Glucose 87 Total Protein 8.0 Albumin 3.3 Calcium Level 8.8 Alkaline Phosphatase 102 Aspartate Amino Transf (AST/SGOT) 18 Alanine Aminotransferase (ALT/SGPT) 24 Total Bilirubin 0.6 Sodium Level 138 Potassium Level 3.4 Chloride Level 103 Carbon Dioxide Level 25.7 Anion Gap 9 Estimat Glomerular Filtration Rate 94 D-Dimer Quantitative (PE/DVT) 0.25 Urine Color LIGHT-YELLOW Urine Turbidity CLEAR Urine pH 7.5 Urine Specific [place] 1.008 Urine Protein NEG Urine Glucose (UA) NEG Urine Ketones NEG Urine Occult Blood NEG Urine Nitrite NEG Urine Bilirubin NEG Urine Urobilinogen LESS THAN 2.0 Urine Leukocyte Esterase TRACE Urine RBC LESS THAN 1 Urine WBC 1 Urine Squamous Epithelial Cells 3 Urine Bacteria RARE Microscopic Urinalysis Comment CULT NOT INDICATED Date/Time Source Procedure Growth Status 04/05/18 20:35 Throat Group A Streptococcus Screen Pending Received Result Diagram: 04/05/18203404/05/182034 Imaging Last Impressions Chest X-Ray 04/05/181999 Signed Impressions: CONCLUSION: Bilateral airspace disease most characteristic of pneumonitis. Caprini VTE Risk Assessment Caprini VTE Risk Assessment: No/Low Risk (score <= 1) Caprini Risk Assessment Model Point Value = 1 Point Value = 2 Point Value = 3 Point Value = 5 Age 41-60 Minor surgery BMI > 25 kg/m2 Swollen legs Varicose veins or History of unexplained or recurrent spontaneous Oral contraceptives or hormone replacement Sepsis (< 1 month) Serious lung disease, including pneumonia (< 1 month) Abnormal pulmonary function Acute myocardial infarction Congestive heart failure (< 1 month) History of inflammatory bowel disease Medical patient at bed rest Age 61-74 Arthroscopic surgery Major open surgery (> 45 min) Laparoscopic surgery (> 45 min) Malignancy Confined to bed (> 72 hours) Immobilizing plaster cast Central venous access Age >= 75 History of VTE Family history of VTE Factor V Leiden Prothrombin [id number] Lupus anticoagulant Anticardiolipin antibodies Elevated serum homocysteine Heparin-induced thrombocytopenia Other congenital or acquired thrombophilia Stroke (< 1 month) Elective arthroplasty Hip, pelvis, or leg fracture Acute spinal cord injury (< 1 month) Prophylaxis Regimen Total Risk Factor Score Risk Level Prophylaxis Regimen 0-1 Low Early ambulation 2 Moderate Order ONE of the following: *Sequential Compression Device (SCD) *Heparin 5000 units SQ BID 3-4 Higher Order ONE of the following medications: *Heparin 5000 units SQ TID *Enoxaparin/Lovenox 40 mg SQ daily (WT < 150 kg, CrCl > 30 mL/min) *Enoxaparin/Lovenox 30 mg SQ daily (WT < 150 kg, CrCl > 10-29 mL/min) *Enoxaparin/Lovenox 30 mg SQ BID (WT < 150 kg, CrCl > 30 mL/min) AND/OR *Sequential Compression Device (SCD) 5 or more Highest Order ONE of the following medications: *Heparin 5000 units SQ TID (Preferred with Epidurals) *Enoxaparin/Lovenox 40 mg SQ daily (WT < 150 kg, CrCl > 30 mL/min) *Enoxaparin/Lovenox 30 mg SQ daily (WT < 150 kg, CrCl > 10-29 mL/min) *Enoxaparin/Lovenox 30 mg SQ BID (WT < 150 kg, CrCl > 30 mL/min) AND *Sequential Compression Device (SCD) Assessment and Plan Assessment and Plan 22-year-old female with no medical history presented to the ED with complaints of shortness of breath, and sore throat. Pneumonia, bilateral Chest x-ray reviewed and shows bilateral airspace disease most characteristic of pneumonitis -IV antibiotics Rocephin and azithromycin -Solu-Medrol IV -[place] p.o. for pain management -Guaifenesin, Symbicort and DuoNeb nebs ordered Sore throat Strep negative, culture pending -Chloraseptic [place] as needed DVT prophylaxis: SCDs Discussed Condition With Patient and RN Physician Certification 2 Midnight Certification Type: Admission for Inpatient Services Order for Inpatient Services The services are ordered in accordance with Medicare regulations or non- Medicare payer requirements, as applicable. In the case of services not specified as inpatient-only, they are appropriately provided as inpatient services in accordance with the 2-midnight benchmark. Estimated LOS (days): 2 days is the estimated time the patient will need to remain in the hospital, assuming treatment plan goals are met and no additional complications. Post-Hospital Plan: Dolores Paul April 05, 2018 23:35
[2018-04-06] VITALS: BP 129/67; PULSE 104; RESP 17; TEMP 97.8; O2SAT 98
[2018-04-06] MEDS: methylPREDNISolone SOD SUCC 40 MG/1 ML VIAL IV PUSH SCH ×4 (00:16→17:16)
[2018-04-06 04:15] VITALS: BP 129/70; PULSE 100; RESP 17; TEMP 97.2; O2SAT 98
[2018-04-06 06:03] LABS: AUTOMATED NEUTROPHIL # 18.5 TH/MM3 (1.8-7.7); HEMATOCRIT 35.9 % (35.0-46.0); HEMOGLOBIN 11.3 GM/DL (11.6-15.3); LYMPH % 5.3 % (9.0-44.0); MEAN CELL VOLUME 78.4 FL (80.0-100.0); MEAN CORPUSCULAR HEMOGLOBIN 24.7 PG (27.0-34.0); MEAN CORPUSCULAR HGB CONC 31.6 % (32.0-36.0); MEAN PLATELET VOLUME 8.6 FL (7.0-11.0); MONO % 1.2 % (0.0-8.0); MONOCYTE # 0.2 TH/MM3 (0-0.9); NEUT % 93.5 % (16.0-70.0); PLATELET COUNT 367 TH/MM3 (150-450); RED BLOOD COUNT 4.58 MIL/MM3 (4.00-5.30); WHITE BLOOD COUNT 19.8 TH/MM3 (4.0-11.0)
[2018-04-06 06:27] LABS: ALBUMIN 3.1 GM/DL (3.4-5.0); ALKALINE PHOSPHATASE 102 U/L (45-117); ALT (GPT) 24 U/L (10-53); AST (GOT) 18 U/L (15-37); BICARBONATE 22.8 MEQ/L (21.0-32.0); BLOOD UREA NITROGEN 8 MG/DL (7-18); CALCIUM 8.2 MG/DL (8.5-10.1); CHLORIDE 111 MEQ/L (98-107); CREATININE 0.69 MG/DL (0.50-1.00); GLOMERULAR FILTRATION RATE 128 ML/MIN (>89); GLUCOSE,RANDOM 123 MG/DL (74-106); SODIUM (NA) 141 MEQ/L (136-145); TOTAL BILIRUBIN ADULT 0.3 MG/DL (0.2-1.0); TOTAL PROTEIN 7.7 GM/DL (6.4-8.2)
[2018-04-06 08:00] VITALS: BP 118/69; PULSE 103; PULSE 88; RESP 18; TEMP 98.3; O2SAT 96
[2018-04-06] MEDS: SODIUM CHLOR 0.9% 1000 ML INJ 1,000 ML IV SCH ×2 (08:17→17:57)
[2018-04-06] MEDS: DOCUSATE SODIUM 50 MG/SENNA 8.6 MG TAB PO SCH ×2 (09:30→20:59)
[2018-04-06] MEDS: PHENOL 1.4% SOLN 180 ML BTL OROPHARYNG PRN (09:30)
[2018-04-06] MEDS: guaiFENesin E.R. 600 MG TAB PO SCH ×2 (09:30→20:59)
[2018-04-06] MEDS: ACETAMINOPHEN/HYDROcodone 325 MG/10 MG TAB PO PRN ×3 (09:30→21:00)
[2018-04-06] MEDS: SODIUM CHLORIDE 0.9% FLUSH 10 ML FLUSH IV FLUSH SCH ×2 (09:34→21:00)
[2018-04-06] MEDS: BUDESONIDE-FORMOTEROL 160/4.5 MCG INHALER INH SCH ×2 (09:47→21:00)
[2018-04-06 12:00] VITALS: BP 130/74; PULSE 88; PULSE 93; RESP 18; TEMP 97.3; O2SAT 98
[2018-04-06] MEDS: MAGNESIUM HYDROXIDE SUSP 30 ML CUP PO PRN (15:21)
--- NOTE | 2018-04-06 15:56 | HHI.PR ---
Subjective Remarks 22-year-old female admitted for pneumonitis (pneumonia). She states that she became somewhat short of breath overnight but responded well to a single DuoNeb' s treatment. She remains comfortable in bed. Not oxygen dependent. Objective Vitals Vital Signs Date Time Temp Pulse Resp B/P (MAP) Pulse Ox O2 Delivery O2 Flow Rate FiO2 04/06/18 12:00 97.3 93 18 130/74 (92) 98 04/06/18 10:36 18 04/06/18 08:00 98.3 103 18 118/69 (85) 96 04/06/18 04:15 97.2 100 17 129/70 (89) 98 04/06/18 00:00 97.8 104 17 129/67 (87) 98 04/05/18 21:06 100.3 116 20 131/70 (90) 99 04/05/18 18:37 100.3 135 18 161/66 (97) 98 I/O 04/05/18 04/05/18 04/05/18 04/06/18 04/06/18 04/06/18 06:59 14:59 22:59 06:59 14:59 22:59 Intake Total 1100 ml 480 ml Balance 1100 ml 480 ml Intake Oral 480 ml IV Total 1100 ml # Voids 6 # Bowel Movements 0 Result Diagram: 04/06/18 0508 04/06/18 0508 Objective Remarks GENERAL: Well-nourished, well-developed patient. SKIN: Warm and dry. HEAD: Normocephalic. EYES: No scleral icterus. No injection or drainage. NECK: Supple, trachea midline. No JVD or lymphadenopathy. CARDIOVASCULAR: Regular rate and rhythm without murmurs, gallops, or rubs. RESPIRATORY: Breath sounds equal bilaterally. No obvious wheezing or crackles. GASTROINTESTINAL: Abdomen soft, non-tender, nondistended. EXTREMITIES: No cyanosis, or edema. NEUROLOGICAL: Awake, alert, and oriented x 3. Non-focal. A/P Problem List: (1) Pneumonia ICD Code: J18.9 - Pneumonia, unspecified organism Status: Acute Assessment and Plan 22-year-old female with no medical history presented to the ED with complaints of shortness of breath, and sore throat. Pneumonia, bilateral CXR shows bilateral airspace disease most characteristic of pneumonitis Continue IV Rocephin and azithromycin, Solu-Medrol IV Continue [place], Chloraseptic spray, guaifenesin, duo nebs, Symbicort for symptomatic relief Follow a.m. CBC to monitor leukocytosis trend Sore throat Strep negative, culture pending DVT prophylaxis SCDs Discharge planning Possible discharge tomorrow if leukocytosis is normalizing on current treatment Problem Qualifiers (1) Pneumonia: Qualified Codes: J18.9 - Pneumonia, unspecified organism Omari Plummer MD April 06, 2018 15:56
[2018-04-06 16:00] VITALS: BP 128/62; PULSE 111; PULSE 95; RESP 18; TEMP 97.6; O2SAT 98
[2018-04-06 20:55] VITALS: BP 145/77; PULSE 104; RESP 18; TEMP 97.8; O2SAT 97
[2018-04-06] MEDS: AZITHROMYCIN INJ 500 MG in SODIUM CHLOR 0.9% 250 ML INJ 250 ML IV SCH (20:59)
[2018-04-06] MEDS: cefTRIAXone INJ 1,000 MG in SODIUM CHLORIDE 0.9% INJ 100 ML IV SCH (20:59)
[2018-04-07] VITALS (8 sets, daily range): BP systolic 116–158; BP diastolic 58–88; PULSE 88–123; RESP 18; TEMP 97–98.1; O2SAT 95–99
[2018-04-07] MEDS: RESP: ALBUTEROL 2.5 MG/IPRATROPIUM 0.5 MG NEB (PRN) NEB ×2 (00:32→13:22)
[2018-04-07] MEDS: methylPREDNISolone SOD SUCC 40 MG/1 ML VIAL IV PUSH SCH ×5 (00:51→23:57)
[2018-04-07] MEDS: ACETAMINOPHEN/HYDROcodone 325 MG/10 MG TAB PO PRN ×5 (03:35→23:56)
[2018-04-07] MEDS: guaiFENesin E.R. 600 MG TAB PO SCH ×2 (08:17→21:00)
[2018-04-07] MEDS: DOCUSATE SODIUM 50 MG/SENNA 8.6 MG TAB PO SCH ×2 (08:17→21:00)
[2018-04-07] MEDS: PHENOL 1.4% SOLN 180 ML BTL OROPHARYNG PRN (08:18)
[2018-04-07] MEDS: SODIUM CHLORIDE 0.9% FLUSH 10 ML FLUSH IV FLUSH SCH ×2 (08:18→21:01)
[2018-04-07] MEDS: BUDESONIDE-FORMOTEROL 160/4.5 MCG INHALER INH SCH ×2 (08:18→21:01)
[2018-04-07] MEDS: MAGNESIUM HYDROXIDE SUSP 30 ML CUP PO PRN (08:19)
[2018-04-07 09:42] LABS: AUTOMATED NEUTROPHIL # 31.5 TH/MM3 (1.8-7.7); BASOPHIL % 0.1 % (0.0-2.0); HEMATOCRIT 35.4 % (35.0-46.0); HEMOGLOBIN 11.1 GM/DL (11.6-15.3); LYMPH % 4.5 % (9.0-44.0); LYMPHOCYTE # 1.5 TH/MM3 (1.0-4.8); MEAN CELL VOLUME 78.7 FL (80.0-100.0); MEAN CORPUSCULAR HEMOGLOBIN 24.8 PG (27.0-34.0); MEAN CORPUSCULAR HGB CONC 31.5 % (32.0-36.0); MEAN PLATELET VOLUME 8.7 FL (7.0-11.0); MONO % 1.8 % (0.0-8.0); MONOCYTE # 0.6 TH/MM3 (0-0.9); NEUT % 93.6 % (16.0-70.0); PLATELET COUNT 407 TH/MM3 (150-450); RED CELL DISTRIBUTION WIDTH 15.3 % (11.6-17.2); WHITE BLOOD COUNT 33.6 TH/MM3 (4.0-11.0)
[2018-04-07 10:18] LABS: SICKLE CELL SCREEN NEG (NEG)
[2018-04-07 10:27] LABS: BANDS 6 % (0-6); LYMPHOCYTES 3 % (9-44); NEUTROPHIL # MANUAL DIFF 32.6 TH/MM3 (1.8-7.7); POLYS (SEG NEUTROPHILS) 91 % (16-70)
[2018-04-07 10:28] LABS: TOXIC VACUOLATION PRESENT (NONE SEEN)
[2018-04-07] MEDS: SODIUM CHLOR 0.9% 1000 ML INJ 1,000 ML IV SCH (11:40)
--- NOTE | 2018-04-07 14:59 | HHI.PR ---
Subjective Remarks Patient states she feels somewhat better, she reports no fevers but does complain of body aches, mostly muscle aches including thigh muscle. When I asked her if she has a history of sickle cell she denies any knowledge of that. She is unsure whether or not she has sickle cell trait. Objective Vitals Vital Signs Date Time Temp Pulse Resp B/P (MAP) Pulse Ox O2 Delivery O2 Flow Rate FiO2 04/07/18 14:38 18 04/07/18 12:00 100 04/07/18 08:00 97.5 92 18 116/58 (77) 98 04/07/18 08:00 88 04/07/18 03:30 97.5 90 18 125/69 (87) 99 04/07/18 00:00 97.1 104 18 136/85 (102) 98 04/06/18 20:55 97.8 104 18 145/77 (99) 97 04/06/18 19:01 Room Air 04/06/18 16:00 111 04/06/18 16:00 97.6 95 18 128/62 (84) 98 I/O 04/06/18 04/06/18 04/06/18 04/07/18 04/07/18 04/07/18 07:00 15:00 23:00 07:00 15:00 23:00 Intake Total 480 ml 1180 ml 1920 ml Balance 480 ml 1180 ml 1920 ml Intake Oral 480 ml 580 ml 720 ml IV Total 600 ml 1200 ml # Voids 6 4 5 # Bowel Movements 0 0 Result Diagram: 04/07/18 0923 04/06/18 0508 Objective Remarks GENERAL: Well-nourished, well-developed patient. SKIN: Warm and dry. HEAD: Normocephalic. EYES: No scleral icterus. No injection or drainage. NECK: Supple, trachea midline. No JVD or lymphadenopathy. CARDIOVASCULAR: Regular rate and rhythm without murmurs, gallops, or rubs. RESPIRATORY: Breath sounds equal bilaterally. No obvious wheezing or crackles. GASTROINTESTINAL: Abdomen soft, non-tender, nondistended. EXTREMITIES: No cyanosis, or edema. NEUROLOGICAL: Awake, alert, and oriented x 3. Non-focal. A/P Problem List: (1) Pneumonia ICD Code: J18.9 - Pneumonia, unspecified organism Status: Acute Assessment and Plan 22-year-old female with no medical history presented to the ED with complaints of shortness of breath, and sore throat. Pneumonia, bilateral CXR shows bilateral airspace disease most characteristic of pneumonitis Continue IV Rocephin and azithromycin, Solu-Medrol IV Continue [place], Chloraseptic spray, guaifenesin, duo nebs, Symbicort for symptomatic relief Follow a.m. CBC to monitor leukocytosis trend 5 pain is suspicious for sickle cell trait, sickle cell screen ordered Leukocytosis Due to effect of Solu-Medrol C reactive protein ordered for today, repeat in the a.m. to compare Sore throat Throat culture grew out beta strep group C Covered adequately by Rocephin DVT prophylaxis SCDs Discharge planning Patient is still requiring regular breathing treatments, she gets short winded when walking to the bathroom Reevaluate for discharge tomorrow Problem Qualifiers (1) Pneumonia: Qualified Codes: J18.9 - Pneumonia, unspecified organism Omari Plummer MD April 07, 2018 14:59
[2018-04-07] MEDS: cefTRIAXone INJ 1,000 MG in SODIUM CHLORIDE 0.9% INJ 100 ML IV SCH (19:41)
[2018-04-07] MEDS: AZITHROMYCIN INJ 500 MG in SODIUM CHLOR 0.9% 250 ML INJ 250 ML IV SCH (21:00)
[2018-04-08] VITALS (8 sets, daily range): BP systolic 101–142; BP diastolic 67–91; PULSE 85–102; RESP 16–18; TEMP 97.2–98.3; O2SAT 93–100
[2018-04-08] MEDS: RESP: ALBUTEROL 2.5 MG/IPRATROPIUM 0.5 MG NEB (PRN) NEB (00:31)
[2018-04-08] MEDS ORDERED: diphenhydrAMINE HCL 25 MG CAP PO PRN (02:15)
[2018-04-08] MEDS: methylPREDNISolone SOD SUCC 40 MG/1 ML VIAL IV PUSH SCH ×2 (05:38→21:03)
[2018-04-08] MEDS: ACETAMINOPHEN/HYDROcodone 325 MG/10 MG TAB PO PRN ×3 (05:39→18:17)
[2018-04-08] MEDS: DOCUSATE SODIUM 50 MG/SENNA 8.6 MG TAB PO SCH ×2 (09:00→21:02)
[2018-04-08] MEDS: guaiFENesin E.R. 600 MG TAB PO SCH ×2 (09:01→21:02)
[2018-04-08] MEDS: BUDESONIDE-FORMOTEROL 160/4.5 MCG INHALER INH SCH ×2 (09:01→21:00)
[2018-04-08] MEDS: SODIUM CHLORIDE 0.9% FLUSH 10 ML FLUSH IV FLUSH SCH ×2 (09:01→21:03)
--- NOTE | 2018-04-08 09:52 | HHI.PR ---
Subjective Remarks Patient's states that she is still short of breath particularly she ambulates to the bathroom and is not ready for discharge. She still feels weak and with muscle aches all over. She does not want to go home today. She denies any chest pain. She has not had any chills or fever. Objective Vitals Vital Signs Date Time Temp Pulse Resp B/P (MAP) Pulse Ox O2 Delivery O2 Flow Rate FiO2 04/08/18 08:00 97.3 85 18 132/81 (98) 93 04/08/18 04:00 96 04/08/18 04:00 97.2 92 18 101/67 (78) 100 04/08/18 00:09 102 04/07/18 23:06 97.6 123 18 135/76 (95) 95 04/07/18 20:01 Room Air 04/07/18 19:55 100 04/07/18 19:18 98.0 111 18 158/88 (111) 98 04/07/18 16:00 97.0 98 18 155/88 (110) 97 04/07/18 14:38 18 04/07/18 12:00 100 04/07/18 12:00 97.8 106 18 133/73 (93) 96 I/O 04/07/18 04/07/18 04/07/18 04/08/18 04/08/18 04/08/18 07:00 15:00 23:00 07:00 15:00 23:00 Intake Total 1920 ml 720 ml 480 ml Balance 1920 ml 720 ml 480 ml Intake Oral 720 ml 720 ml 480 ml IV Total 1200 ml # Voids 5 3 4 # Bowel Movements 0 0 0 Result Diagram: 04/07/18 0923 04/06/18 0508 Other Results Item Value Date Time C-Reactive Protein 4.10 MG/DL H 04/08/18 0539 Microbiology Date/Time Source Procedure Growth Status 04/05/18 20:35 Throat Group A Streptococcus Screen - Final Beta Streptococcus Group C Complete Objective Remarks GENERAL: This is a well-nourished, well-developed patient, in no apparent distress. CARDIOVASCULAR: Regular rate and rhythm RESPIRATORY: Diminished breath sounds in the bases otherwise relatively clear bilaterally obese, GASTROINTESTINAL: Abdomen soft, obese, non-tender, nondistended. Normal active bowel sounds MUSCULOSKELETAL: Extremities without clubbing, cyanosis, or edema. NEURO: Alert & Oriented x4 to person, place, time, situation. Moves all ext x4 A/P Problem List: (1) Pneumonia ICD Code: J18.9 - Pneumonia, unspecified organism Status: Acute Assessment and Plan 22-year-old female with no medical history presented to the ED with complaints of shortness of breath, and sore throat. Pneumonia, bilateral CXR shows bilateral airspace disease most characteristic of pneumonitis Continue IV Rocephin and transition IV azithromycin, 2 p.o. wean Solu-Medrol IV to twice daily Continue [place], Chloraseptic spray, guaifenesin, duo nebs, Symbicort for symptomatic relief CBC shows elevated WBC likely due to steroids however will repeat in the morning with weaning of Solu-Medrol. Encourage incentives spirometry use. Dose of Toradol IV to be given today. Leukocytosis Due to effect of Solu-Medrol C reactive protein ordered for today, and trending down. Sore throat Throat culture grew out beta strep group C Covered adequately by Rocephin DVT prophylaxis SCDs Encourage ambulation Problem Qualifiers (1) Pneumonia: Qualified Codes: J18.9 - Pneumonia, unspecified organism Becka Zapata MD April 08, 2018 09:52
[2018-04-08] MEDS ORDERED: KETOROLAC TROMETHAMINE 30 MG/ML (IVP) VIAL IV PUSH ONE (10:00)
[2018-04-08] MEDS: SODIUM CHLOR 0.9% 1000 ML INJ 1,000 ML IV SCH ×4 (10:17→21:03)
[2018-04-08] MEDS: cefTRIAXone INJ 1,000 MG in SODIUM CHLORIDE 0.9% INJ 100 ML IV SCH (21:02)
[2018-04-08] MEDS: AZITHROMYCIN 250 MG TAB PO SCH (21:09)
[2018-04-08] MEDS: METOCLOPRAMIDE HCL 10 MG/2 ML VIAL IV PUSH PRN (21:11)
[2018-04-09] VITALS: BP 116/70; PULSE 95; RESP 20; TEMP 98; O2SAT 97
[2018-04-09] MEDS: ACETAMINOPHEN/HYDROcodone 325 MG/10 MG TAB PO PRN ×2 (00:49→08:33)
[2018-04-09 04:00] VITALS: BP 141/78; PULSE 90; RESP 20; TEMP 98.6; O2SAT 98
[2018-04-09 08:00] VITALS: BP 137/87; PULSE 69; RESP 18; TEMP 98.1; O2SAT 100
[2018-04-09 08:08] LABS: BASOPHIL % 0.1 % (0.0-2.0); HEMOGLOBIN 10.7 GM/DL (11.6-15.3); LYMPH % 14.4 % (9.0-44.0); LYMPHOCYTE # 2.7 TH/MM3 (1.0-4.8); MEAN CELL VOLUME 78.3 FL (80.0-100.0); MEAN CORPUSCULAR HEMOGLOBIN 24.6 PG (27.0-34.0); MEAN CORPUSCULAR HGB CONC 31.5 % (32.0-36.0); MEAN PLATELET VOLUME 8.2 FL (7.0-11.0); MONO % 5.7 % (0.0-8.0); MONOCYTE # 1.1 TH/MM3 (0-0.9); NEUT % 79.8 % (16.0-70.0); PLATELET COUNT 486 TH/MM3 (150-450); RED BLOOD COUNT 4.34 MIL/MM3 (4.00-5.30); RED CELL DISTRIBUTION WIDTH 15.4 % (11.6-17.2); WHITE BLOOD COUNT 18.8 TH/MM3 (4.0-11.0)
[2018-04-09] MEDS: BUDESONIDE-FORMOTEROL 160/4.5 MCG INHALER INH SCH (08:32)
[2018-04-09] MEDS: AZITHROMYCIN 250 MG TAB PO SCH (08:33)
[2018-04-09] MEDS: SODIUM CHLORIDE 0.9% FLUSH 10 ML FLUSH IV FLUSH SCH (08:33)
[2018-04-09] MEDS: DOCUSATE SODIUM 50 MG/SENNA 8.6 MG TAB PO SCH (08:33)
[2018-04-09] MEDS: guaiFENesin E.R. 600 MG TAB PO SCH (08:33)
[2018-04-09] MEDS: methylPREDNISolone SOD SUCC 40 MG/1 ML VIAL IV PUSH SCH (08:33)
[2018-04-09] MEDS: PHENOL 1.4% SOLN 180 ML BTL OROPHARYNG PRN (08:34)
[2018-04-09] MEDS: METOCLOPRAMIDE HCL 10 MG/2 ML VIAL IV PUSH PRN (09:06)
--- NOTE | 2018-04-09 09:28 | HHI.PR ---
Subjective Remarks Breathing feels better. Reports still generalized weakness and having pain with cough. No active chest pain at this time. No fevers or chills. Objective Vitals Vital Signs Date Time Temp Pulse Resp B/P (MAP) Pulse Ox O2 Delivery O2 Flow Rate FiO2 04/09/18 08:00 98.1 69 18 137/87 (104) 100 04/09/18 04:00 98.6 90 20 141/78 (99) 98 04/09/18 00:00 98.0 95 20 116/70 (85) 97 04/08/18 20:00 98.0 88 16 142/91 (108) 95 04/08/18 18:50 Room Air 04/08/18 16:00 97.9 90 18 132/73 (92) 100 04/08/18 14:59 18 04/08/18 12:45 98.3 100 18 134/86 (102) 97 04/08/18 12:43 18 04/08/18 12:00 98.3 100 18 134/86 (102) 97 I/O 04/08/18 04/08/18 04/08/18 04/09/18 04/09/18 04/09/18 07:00 15:00 23:00 07:00 15:00 23:00 Intake Total 480 ml 960 ml 1550 ml 1887 ml Balance 480 ml 960 ml 1550 ml 1887 ml Intake Oral 480 ml 960 ml 200 ml 800 ml IV Total 1350 ml 1087 ml # Voids 4 4 2 3 # Bowel Movements 0 2 0 Result Diagram: 04/09/18 0630 04/06/18 0508 Objective Remarks GENERAL: This is a well-nourished, well-developed patient, in no apparent distress. CARDIOVASCULAR: Regular rate and rhythm RESPIRATORY: Diminished breath sounds in the bases otherwise relatively clear bilaterally, GASTROINTESTINAL: Abdomen soft, obese, non-tender, nondistended. Normal active bowel sounds MUSCULOSKELETAL: Extremities without clubbing, cyanosis, or edema. NEURO: Alert & Oriented x4 to person, place, time, situation. Moves all ext x4 A/P Problem List: (1) Pneumonia ICD Code: J18.9 - Pneumonia, unspecified organism Status: Acute Assessment and Plan 22-year-old female with no medical history presented to the ED with complaints of shortness of breath, and sore throat. Pneumonia, bilateral CXR shows bilateral airspace disease most characteristic of pneumonitis Switch IV Rocephin to p.o. Ceftin and continue with p.o. azithromycin. Transition IV Solu-Medrol to p.o. prednisone. Continue [place], Chloraseptic spray, guaifenesin, duo nebs, Symbicort for symptomatic relief CBC shows elevated WBC likely due to steroids as levels trended down today. Encourage incentives spirometry use. Leukocytosis Due to effect of Solu-Medrol, levels trended down today C-reactive protein also trended down during the hospitalization Sore throat Throat culture grew out beta strep group C Covered adequately by Rocephin and will transition to p.o. Ceftin DVT prophylaxis SCDs Encourage ambulation Discharge Planning Discharged patient to home today. Problem Qualifiers (1) Pneumonia: Qualified Codes: J18.9 - Pneumonia, unspecified organism Becka Zapata MD April 09, 2018 09:27
[2018-04-09] MEDS ORDERED: AZIT250T3 PO (09:30)
[2018-04-09] MEDS ORDERED: CEFU1TAB18 PO (09:30)
[2018-04-09] MEDS ORDERED: HYDR-3516 PO (09:31)
[2018-04-09] MEDS ORDERED: VENTAER INH (09:32)
--- NOTE | 2018-04-09 09:38 | HHI.DS ---
Discharge Summary Admission Date April 05, 2018 at 22:21 Discharge Date: April 09, 2018 Admitting Diagnosis PNA (1) Pneumonia ICD Code: J18.9 - Pneumonia, unspecified organism Diagnosis: Principal Status: Acute Procedures none Brief History - From Admission Obtained from admitting physician's history and physical 22-year-old female with no medical history presented to the ED with complaints of shortness of breath, and sore throat. Patient states the symptoms have been going on for the last 2 days she states it is hard for her to take a deep breath and hard to swallow. She states she has had a fever at home but unknown temperature and chills. She denies any chest pain, headaches, nausea, vomiting. She also complains of generalized body pain 7/10 that was relieved by Tylenol last night. CBC/BMP: 04/09/18 0630 04/06/18 0508 Significant Findings Laboratory Tests Test 04/07/18 09:23 04/07/18 20:08 04/08/18 05:39 04/09/18 06:30 White Blood Count 33.6 TH/MM3 (4.0-11.0) 18.8 TH/MM3 (4.0-11.0) Hemoglobin 11.1 GM/DL (11.6-15.3) 10.7 GM/DL (11.6-15.3) Mean Corpuscular Volume 78.7 FL (80.0-100.0) 78.3 FL (80.0-100.0) Mean Corpuscular Hemoglobin 24.8 PG (27.0-34.0) 24.6 PG (27.0-34.0) Mean Corpuscular Hemoglobin Concent 31.5 % (32.0-36.0) 31.5 % (32.0-36.0) Neutrophils (%) (Auto) 93.6 % (16.0-70.0) 79.8 % (16.0-70.0) Lymphocytes (%) (Auto) 4.5 % (9.0-44.0) Neutrophils # (Auto) 31.5 TH/MM3 (1.8-7.7) 15.0 TH/MM3 (1.8-7.7) Neutrophils % (Manual) 91 % (16-70) Lymphocytes % 3 % (9-44) Neutrophils # (Manual) 32.6 TH/MM3 (1.8-7.7) Toxic Vacuolation PRESENT (NONE SEEN) C-Reactive Protein 6.12 MG/DL (0.00-0.30) 4.10 MG/DL (0.00-0.30) Hematocrit 34.0 % (35.0-46.0) Platelet Count 486 TH/MM3 (150-450) Monocytes # (Auto) 1.1 TH/MM3 (0-0.9) Imaging Last Impressions Chest X-Ray 04/05/181999 Signed Impressions: CONCLUSION: Bilateral airspace disease most characteristic of pneumonitis. PE at Discharge GENERAL: This is a well-nourished, well-developed patient, in no apparent distress. CARDIOVASCULAR: Regular rate and rhythm RESPIRATORY: Diminished breath sounds in the bases otherwise relatively clear bilaterally, GASTROINTESTINAL: Abdomen soft, obese, non-tender, nondistended. Normal active bowel sounds MUSCULOSKELETAL: Extremities without clubbing, cyanosis, or edema. NEURO: Alert & Oriented x4 to person, place, time, situation. Moves all ext x4 Hospital Course 22-year-old female admitted for bilateral pneumonia was started on IV Rocephin and azithromycin. She was also given IV's Solu-Medrol and had elevated leukocytosis which was attributed steroids and underlying infection. Her loop leukocytosis trended down with weaning of the steroids. In addition her CRP also trended down during the hospitalization. She was given [place] for pain. Her throat cultures reveal strep group C and this was covered with Rocephin and transitioning to p.o. Ceftin and azithromycin was given. At this time, patient was also prescribed an inhaler as needed for shortness of breath. She has gained maximum benefit from hospitalization and is ready to be discharged to home. Pt Condition on Discharge: Good Discharge Disposition: Discharge Home Discharge Time: <= 30 minutes Discharge Instructions DIET: Follow Instructions for: As Tolerated, No Restrictions Activities you can perform: Regular-No Restrictions Follow up Referrals: PCP Follow-up - 1 Week New Medications: Albuterol 18 GM Inh (Ventolin Hfa 18 GM Inh) 90 Mcg/Act Aer 2 PUFF INH Q4H PRN for SHORTNESS OF BREATH, #1 INHALER 0 Refills Cefuroxime (Ceftin) 250 Mg Tab 250 MG PO BID for Infection, #10 TAB Azithromycin (Azithromycin) 250 Mg Tab 500 MG PO DAILY for Infection, #3 TAB Hydrocodone/Acetaminophen (Hydrocodone-Acetamin 5-325 mg) 5 Mg-325 Mg Tablet 1 TAB PO Q4H PRN for pain, #15 TAB Continued Medications: Chlorhexidine Gluconate (Peridex Oral Rinse) 0.12 % Debbi 15 ML SSP BID for 7 Days, ML Diclofenac Sodium DR (Diclofenac Sodium DR) 75 Mg Tabdr 75 MG PO Q8HR PRN for PAIN SCALE 1 TO 10, #20 TAB Dicyclomine (Bentyl) 20 Mg Tab 20 MG PO TID for Bowel Management, #15 TAB 0 Refills Diphenoxylate-Atropine (Lomotil) 2.5-0.025 Mg Tab 1 TAB PO Q6H PRN for DIARRHEA, #10 TAB 0 Refills Ondansetron Odt (Zofran Odt) 4 Mg Tab 4 MG SL Q6HR PRN for Nausea/Vomiting, #10 TAB 0 Refills Ranitidine (Zantac 75) 75 Mg Tab 75 MG PO BID for Heartburn, #20 TAB 0 Refills Take 30 to 60 minutes before eating food or drinking beverages that cause heartburn. Discontinued Medications: Ciprofloxacin (Cipro) 500 Mg Tab 500 MG PO BID for Infection for 7 Days, TAB Penicillin V Potassium (Pen Vk) 500 Mg Tab 500 MG PO Q6 for 10 Days, TAB Becka Zapata MD April 09, 2018 09:38
[2018-04-09 09:48] LABS: BANDS 6 % (0-6); LYMPHOCYTES 12 % (9-44); MONOCYTES 5 % (0-8); MYELOCYTES 1 % (0-0); NEUTROPHIL # MANUAL DIFF 15.6 TH/MM3 (1.8-7.7); POLYS (SEG NEUTROPHILS) 76 % (16-70)
== END 2018-04-09 11:10 | disposition home or self-care (01) | DRG 194 ==
LOC: NEPD 18:24 → NEDA 22:21 → N06B 22:48
PROVIDERS: ADMIT Family Medicine; ATTEND Family Medicine
DX: J18.9 Pneumonia, unspecified organism (principal); Z68.41 Body mass index [BMI] 40.0-44.9, adult; E66.3 Overweight
CPT/HCPCS: 71046; 76937; 80053; 81001; 84703; 85007; 85025; 85027; 85379; 85660; 86140; 86403; 87081; 87804; 87880; 94150; 94640; 94664; 96365; 96368; 96375; J0456; J0696; J1100; J1885; J2765; J2920; J7030; J7050

== ENCOUNTER 2018-04-11 15:14 | Emergency (ER) | payer MEDICAID ==
[~2018-04-11] VITALS: Ht 162.6 cm; Wt 105.0 kg
[~2018-04-11 15:14] MED LIST changes: +AZIT250T3 PO; +CEFU1TAB18 PO; -CIPR-9 PO; +HYDR-3516 PO; -PENI500T PO; +VENTAER INH
[2018-04-11 15:40] VITALS: BP 146/66; PULSE 88; RESP 20; TEMP 98.7; O2SAT 99
--- NOTE | 2018-04-11 16:12 | PD ---
HPI Chief Complaint: Respiratory Symptoms Time Seen by Provider: 16:03 Travel History International Travel<30 days: No Contact w/Intl Traveler<30days: No Traveled to known affect area: No History of Present Illness HPI 22F presents to the ED for worsening symptoms of SOB, body aches and sore throat. Pt was previously admitted to the hospital from April 05-April 09 for bilateral pneumonia. Pt was discharged with albuterol, azithromycin and cefturoxime, which she states she has been compliant with taking. She states that as soon as she returned home, her original symptoms progressed. She denies any pets, smokers or additional allergens present in the house. She denies any sick contacts. Pt admits to myalgias, chest wall pain, cough, decrease in appetite and exertional SOB with a mild sore throat. She denies any fevers, nausea, vomiting, diarrhea, constipation, problems with urination, or weakness. PFSH Past Medical History Autoimmune Disease: No Cardiovascular Problems: No Genitourinary: No Musculoskeletal: No Neurologic: No Psychiatric: No Reproductive: No Respiratory: No Immunizations Current: Yes ?: Not LMP: 03/14/18 : 1 Para: 1 Miscarriage: 0 : 0 Past Surgical History Section: Yes Oral Surgery: Yes (TOOTH PULLED ON 02/16) Other Surgery: No Social History Alcohol Use: No Tobacco Use: No Substance Use: No Allergies-Medications (Allergen,Severity, Reaction): Coded Allergies: No Known Allergies (Verified Allergy, Unknown, 04/11/18) Reported Meds & Prescriptions Reported Meds & Active Scripts Active Guaifenesin AC Liq (Guaifenesin-Codeine Liq) 100-10 Mg/5 Ml Syrp 10 Ml PO Q6H PRN Ceftin (Cefuroxime Axetil) 250 Mg Tab 250 Mg PO BID 4 Days Ventolin Hfa 18 GM Inh (Albuterol Sulfate) 90 Mcg/Act Aer 2 Puff INH Q4H PRN Hydrocodone-Acetamin 5-325 mg (Hydrocodone/Acetaminophen) 5 Mg-325 Mg Tablet 1 Tab PO Q4H PRN Ceftin (Cefuroxime Axetil) 250 Mg Tab 250 Mg PO BID Azithromycin 250 Mg Tab 500 Mg PO DAILY Diclofenac Sodium DR (Diclofenac Sodium) 75 Mg Tabdr 75 Mg PO Q8HR PRN Review of Systems General / Constitutional: No: Fever, Chills Respiratory: Positive: Cough, Shortness of Breath Gastrointestinal: Positive: Changes in Bowel Habits, No: Nausea, Vomiting, Diarrhea, Abdominal Pain, Constipation Musculoskeletal: Positive: Myalgias Physical Exam Narrative GENERAL: well developed, obese female with is in no acute distress. Alert and oriented x3. SKIN: Warm and dry. HEAD: Atraumatic. Normocephalic. EYES: Pupils equal and round. No scleral icterus. No irritation or drainage. ENT: No nasal bleeding or discharge. Mucous membranes pink and moist. No pharyngeal erythema or exudates. CARDIOVASCULAR: Regular rate and rhythm. No murmurs, rubs or gallops. RESPIRATORY: No accessory muscle use. Clear to auscultation. Breath sounds equal bilaterally. GASTROINTESTINAL: Abdomen soft, non-tender, nondistended. Hepatic and splenic margins not palpable. MUSCULOSKELETAL: Extremities without clubbing, cyanosis, or edema. No obvious deformities. NEUROLOGICAL: Awake and alert. No obvious cranial nerve deficits. Motor grossly within normal limits. Five out of 5 muscle strength in the arms and legs. Normal speech. PSYCHIATRIC: Appropriate mood and affect; insight and judgment normal. Data Data Last Documented VS Vital Signs Date Time Temp Pulse Resp B/P (MAP) Pulse Ox O2 Delivery O2 Flow Rate FiO2 04/11/18 16:36 98 Room Air 04/11/18 15:40 98.7 88 20 146/66 (92) Orders Orders Complete Blood Count With Diff (04/11/18 16:09) Chest, Pa & Lat (04/11/18 16:09) Iv Access Insert/Monitor (04/11/18 16:09) Oximetry (04/11/18 16:09) Labs Laboratory Tests Test 04/11/18 16:43 White Blood Count 17.6 TH/MM3 Red Blood Count 4.55 MIL/MM3 Hemoglobin 11.2 GM/DL Hematocrit 35.4 % Mean Corpuscular Volume 77.8 FL Mean Corpuscular Hemoglobin 24.6 PG Mean Corpuscular Hemoglobin Concent 31.7 % Red Cell Distribution Width 15.7 % Platelet Count 490 TH/MM3 Mean Platelet Volume 7.6 FL Neutrophils (%) (Auto) 66.0 % Lymphocytes (%) (Auto) 28.9 % Monocytes (%) (Auto) 3.2 % Eosinophils (%) (Auto) 1.6 % Basophils (%) (Auto) 0.3 % Neutrophils # (Auto) 11.6 TH/MM3 Lymphocytes # (Auto) 5.1 TH/MM3 Monocytes # (Auto) 0.6 TH/MM3 Eosinophils # (Auto) 0.3 TH/MM3 Basophils # (Auto) 0.1 TH/MM3 CBC Comment AUTO DIFF Differential Comment AUTO DIFF CONFIRMED Platelet Estimate NORMAL Platelet Morphology Comment NORMAL MDM Medical Decision Making Medical Screen Exam Complete: Yes Emergency Medical Condition: Yes Medical Record Reviewed: Yes Differential Diagnosis Worsening pneumonia versus metabolic derangement versus bronchitis Narrative Course 22-year-old female who had recent inpatient pneumonia treatment, presents here with complaints of body aches and continued cough. Patient states that she felt better initially when she got home however is felt a little worse. Patient has no fevers, chills. Patient has body aches. Chest x-ray shows interval improvement of her pneumonia. White blood cell count is 17 which is down from 19 which was her last white blood cell count. On reevaluation, she is nontoxic. I discussed the findings with the patient stated we will extend her cefuroxime for 4 more days. Also write her cough syrup with codeine. She has been warned of the sedative effects. She will be instructed to return if she does any worsening symptoms, fevers chills, or any other reason. Diagnosis Primary Impression: Improving pneumonia Additional Instructions: Do not take cough syrup with alcohol or drive. Return if feeling worse, or fevers, chills, or any other reason. Med/Other Pt SpecificInfo: Prescription(s) given Scripts Guaifenesin-Codeine Liq (Guaifenesin AC Liq) 100-10 Mg/5 Ml Syrp 10 ML PO Q6H Y for COUGH, #1 BOTTLE 0 Refills Prov: Barber Rose MD 04/11/18 Cefuroxime (Ceftin) 250 Mg Tab 250 MG PO BID for 4 Days, #8 TAB Prov: Barber Rose MD 04/11/18 Disposition: 01 DISCHARGE HOME Condition: Stable Barber Rose MD Apr 11, 2018 16:12
--- NOTE | 2018-04-11 16:31 | RADRPT ---
EXAM DATE: 04/11/2018 4:27 PM EDT AGE/SEX: 22 years / Female INDICATIONS: Chest pain. Follow-up recent pulmonary infiltrates. CLINICAL DATA: This is the patient's initial encounter. Patient reports that signs and symptoms have been present for 2 days and indicates a pain score of 8/10. MEDICAL/SURGICAL HISTORY: . hx of pneumonia None. COMPARISON: [facility] [place] & LAT, 04/05/2018. . FINDINGS: PA and lateral views of the chest demonstrate the lungs to be symmetrically aerated without evidence of mass, consolidative infiltrate or effusion. The previously noted bilateral infiltrates have improv ed with only mild residual left perihilar region. The cardiomediastinal contours are unremarkable. Os seous structures are intact. CONCLUSION: Interval improvement in bilateral pulmonary infiltrates with mild residual in the left perihilar sai on. Electronically signed by: Ganga Toro MD 04/11/2018 4:29 PM EDT
[2018-04-11 16:36] VITALS: O2SAT 98
[2018-04-11 17:00] LABS: AUTOMATED NEUTROPHIL # 11.6 TH/MM3 (1.8-7.7); BASOPHIL # 0.1 TH/MM3 (0-0.2); BASOPHIL % 0.3 % (0.0-2.0); EOSINOPHIL # 0.3 TH/MM3 (0-0.4); EOSINOPHIL % 1.6 % (0.0-4.0); HEMATOCRIT 35.4 % (35.0-46.0); HEMOGLOBIN 11.2 GM/DL (11.6-15.3); LYMPH % 28.9 % (9.0-44.0); LYMPHOCYTE # 5.1 TH/MM3 (1.0-4.8); MEAN CELL VOLUME 77.8 FL (80.0-100.0); MEAN CORPUSCULAR HEMOGLOBIN 24.6 PG (27.0-34.0); MEAN CORPUSCULAR HGB CONC 31.7 % (32.0-36.0); MEAN PLATELET VOLUME 7.6 FL (7.0-11.0); MONO % 3.2 % (0.0-8.0); MONOCYTE # 0.6 TH/MM3 (0-0.9); PLATELET COUNT 490 TH/MM3 (150-450); RED BLOOD COUNT 4.55 MIL/MM3 (4.00-5.30); RED CELL DISTRIBUTION WIDTH 15.7 % (11.6-17.2); WHITE BLOOD COUNT 17.6 TH/MM3 (4.0-11.0)
[2018-04-11] MEDS ORDERED: GUAISYP4 PO (18:55)
[2018-04-11] MEDS ORDERED: CEFU1TAB18 PO (18:55)
== END 2018-04-11 19:56 | disposition home or self-care (01) ==
LOC: NEPE 15:14
DX: J18.9 Pneumonia, unspecified organism (principal); Z79.899 Other long term (current) drug therapy
CPT/HCPCS: 71046; 85025; 99284